=== PATIENT | female | born 1970 | race Caucasian/White ===

== ENCOUNTER 2019-12-04 08:41 | Inpatient (IN) | payer OTHER ==
[2019-12-04] MEDS ORDERED: ONDANSETRON 4 MG/2 ML VIAL IVPUSH ONE ×2 (08:57→12:05)
[2019-12-04] MEDS ORDERED: KETOROLAC TROMETHAMINE 30 MG/1 ML VIAL IVPUSH ONE (08:57)
[2019-12-04] MEDS ORDERED: SODIUM CHLORIDE 1,000 ML IV STA (08:57)
--- NOTE | 2019-12-04 08:57 | PDOC ---
Rapid Medical Evaluation Time Seen by Provider: 12/04/19 08:53 Medical Evaluation: Allergies Allergy/AdvReac Type Severity Reaction Status Date / Time shellfish derived Allergy Verified 12/04/19 08:54 12/04/19 08:54 CC: sudden onset of n/v/d at 2 AM, no hematuria, no fever, no irreg menses, hx kidney stones, diverticulosis ExaM: actively vomiting, appears uncomfortable, vss, tender to llq Plan: labs, urine, toradol, zofran, ivf Discharge Disposition - Diagnosis Nausea & vomiting - Referrals - Patient Instructions - Post Discharge Activity
[2019-12-04 09:02] VITALS: BMI 30.2
[2019-12-04] MEDS ORDERED: KETOROLAC TROMETHAMINE 30 MG/1 ML VIAL ONE (09:17)
--- NOTE | 2019-12-04 09:49 | PDOC ---
History of Present Illness - General Chief Complaint: Pain Stated Complaint: COUGHING/NAUSEA Time Seen by Provider: 12/04/19 08:53 - History of Present Illness Initial Comments: Soni Gerber is a 49 y/o female with PMH significant for diverticulitis and s/p tubal ligation and tummy tuck, and remote hx of kidney stones 20 years ago, presenting today with nausea, vomiting NBNB, and abdominal pain that started at 2am this morning. Denies fever/chills. Denies chest pain/shortness of breath. Pain is diffuse but worse over the left flank and LLQ. No leg swelling. No dysuria. No diarrhea/constipation. No headache/dizziness. Last meal 7pm last night. Past History - Medical History Allergies/Adverse Reactions: Allergies Allergy/AdvReac Type Severity Reaction Status Date / Time shellfish derived Allergy Verified 12/04/19 08:54 COPD: No Other medical history: COLITIS, KIDNEY STONES - Immunization History Immunization Up to Date: Yes - Psycho-Social/Smoking History Smoking History: Never smoked - Substance Abuse Hx (Audit-C & DAST Scrn) How often the patient has a drink containing alcohol: Monthly or less Number of drinks the patient has on a typical day: 1 or 2 How often the patient has six or more drinks on one occasion: Never Score: In Men: 4 or > Positive; In Women: 3 or > Positive: 1 Screen Result (Pos requires Nsg. Audit-10AR): Negative In the last yr the pt used illegal drug/Rx for NonMed reason: No Score: Yes response is considered Positive: 0 Screen Result (Positive result requires Nsg. DAST-10): Negative Review of Systems - Review of Systems Comments:: GENERAL/CONSTITUTIONAL: No fever or chills. No weakness._ HEAD, EYES, EARS, NOSE AND THROAT: No change in vision. No change in hearing. No sore throat._ CARDIOVASCULAR: No chest pain or shortness of breath_ RESPIRATORY: Denies cough, hemoptysis_ GASTROINTESTINAL: Reports abdominal pain. Reports nausea/vomiting. No diarrhea or constipation._ GENITOURINARY: No dysuria, frequency, or change in urination._ MUSCULOSKELETAL: Reports left flank pain. No neck or back pain._ SKIN: No rash_ NEUROLOGIC: No headache, vertigo, loss of consciousness, or change in strength/sensation._ ENDOCRINE: No increased thirst. No abnormal weight change_ HEMATOLOGIC/LYMPHATIC: No anemia, easy bleeding, or history of blood clots._ ALLERGIC/IMMUNOLOGIC: No hives or skin allergy._ *Physical Exam - Vital Signs Last Vital Signs Temp Pulse Resp BP Pulse Ox 98.2 F 86 20 158/101 H 100 12/04/19 08:55 12/04/19 08:55 12/04/19 08:55 12/04/19 08:55 12/04/19 08:55 - Physical Exam GENERAL: Awake, alert, and oriented to person/place/time, in no acute distress_ HEAD: No signs of trauma, normocephalic, atraumatic _ EYES: PERRLA, EOMI, sclera anicteric, conjunctiva clear_ ENT: Hearing grossly normal, nares patent, oropharynx clear without exudates. No uvular deviation. Moist mucosa_ NECK: Normal ROM, supple, no lymphadenopathy, JVD, or masses_ LUNGS: No distress, speaks in full sentences, clear to auscultation bilaterally _ HEART: Regular rate and rhythm, normal S1 and S2, no murmurs appreciated, peripheral pulses normal and equal bilaterally._ ABDOMEN: Soft, diffuse TTP worse in the LLQ, normoactive bowel sounds. No guarding, no rebound. No masses_ BACK: Left flank TTP, no CVA tenderness bilaterally. EXTREMITIES: Normal inspection, Normal range of motion, no edema. No clubbing or cyanosis_ NEUROLOGICAL: Cranial nerves II through XII grossly intact. Normal speech, normal gait, no focal sensorimotor deficits _ SKIN: Warm, Dry, normal turgor, no rashes or lesions noted_ ED Treatment Course - LABORATORY CBC & Chemistry Diagram: 12/04/19 09:20 12/04/19 09:20 - Medications Given in the ED: ED Medications Discontinued Medications Generic Name Dose Route Start Last Admin Trade Name Freq PRN Reason Stop Dose Admin Ketorolac Tromethamine 30 mg 12/04/19 08:57 12/04/19 09:23 Toradol Injection - IVPUSH 12/04/19 08:58 30 mg ONCE ONE Administration Ondansetron HCl 4 mg 12/04/19 08:57 12/04/19 09:29 Zofran Injection IVPUSH 12/04/19 08:58 4 mg ONCE ONE Administration Medical Decision Making - Medical Decision Making Soni Gerber is a 49 y/o female with PMH significant for diverticulitis (dx 2019, most recent flare up 1 month ago), and remote hx of kidney stone 20 years ago, presenting today with abdominal pain, nausea, vomiting. DDX includes diverticulitis vs bowel obstruction vs nephrolithiasis vs other acute abdominal pathology. -cbc, cmp -coags -type and screen -ua, ucx -lipase -mg 12/04/19 14:11 POCUS shows left sided hydronephrosis. Will obtain CT abd/pelv w/o IV contrast to r/o nephrolithiasis vs diverticulitis. Labs reviewed. Laboratory Last Values WBC 19.5 K/mm3 (4.0-10.0) H 12/04/19 09:20 RBC 5.15 M/mm3 (3.60-5.2) 12/04/19 09:20 Hgb 14.7 GM/dL (10.7-15.3) 12/04/19 09:20 Hct 44.0 % (32.4-45.2) 12/04/19 09:20 MCV 85.4 fl (80-96) 12/04/19 09:20 MCH 28.5 pg (25.7-33.7) 12/04/19 09:20 MCHC 33.4 g/dl (32.0-36.0) 12/04/19 09:20 RDW 13.3 % (11.6-15.6) 12/04/19 09:20 Plt Count 387 K/MM3 (134-434) 12/04/19 09:20 MPV 9.3 fl (7.5-11.1) 12/04/19 09:20 Absolute Neuts (auto) 16.8 K/mm3 (1.5-8.0) H 12/04/19 09:20 Neutrophils % 86.0 % (42.8-82.8) H 12/04/19 09:20 Lymphocytes % 11.5 % (8-40) 12/04/19 09:20 Monocytes % 2.0 % (3.8-10.2) L 12/04/19 09:20 Eosinophils % 0.0 % (0-4.5) 12/04/19 09:20 Basophils % 0.5 % (0-2.0) 12/04/19 09:20 Nucleated RBC % 0 % (0-0) 12/04/19 09:20 PT with INR 10.90 SEC (9.7-13.0) 12/04/19 09:30 INR 0.92 (0.83-1.09) 12/04/19 09:30 PTT (Actin FS) 29.1 SECONDS (25.2-36.5) 12/04/19 09:30 Sodium 139 mmol/L (136-145) 12/04/19 09:20 Potassium 4.4 mmol/L (3.5-5.1) 12/04/19 09:20 Chloride 105 mmol/L (98-107) 12/04/19 09:20 Carbon Dioxide 27 mmol/L (21-32) 12/04/19 09:20 Anion Gap 7 MMOL/L (8-16) L 12/04/19 09:20 BUN 15.0 mg/dL (7-18) 12/04/19 09:20 Creatinine 1.0 mg/dL (0.55-1.3) 12/04/19 09:20 Est GFR (CKD-EPI)AfAm 76.07 12/04/19 09:20 Est GFR (CKD-EPI)NonAf 65.64 12/04/19 09:20 Random Glucose 205 mg/dL (74-106) H 12/04/19 09:20 Calcium 9.4 mg/dL (8.5-10.1) 12/04/19 09:20 Magnesium 2.2 mg/dL (1.8-2.4) 12/04/19 09:20 Total Bilirubin 0.4 mg/dL (0.2-1) 12/04/19 09:20 AST 27 U/L (15-37) 12/04/19 09:20 ALT 35 U/L (13-61) 12/04/19 09:20 Alkaline Phosphatase 81 U/L (45-117) 12/04/19 09:20 Total Protein 7.9 g/dl (6.4-8.2) 12/04/19 09:20 Albumin 4.5 g/dl (3.4-5.0) 12/04/19 09:20 Lipase 95 U/L (73-393) 12/04/19 09:20 Serum , Qual Negative 12/04/19 11:16 Urine Color Yellow 12/04/19 11:45 Urine Appearance Clear 12/04/19 11:45 Urine pH >= 9.0 (5.0-8.0) H 12/04/19 11:45 Ur Specific [place] 1.010 (1.010-1.035) 12/04/19 11:45 Urine Protein Negative (NEGATIVE) 12/04/19 11:45 Urine Glucose (UA) Negative (NEGATIVE) 12/04/19 11:45 Urine Ketones Negative (NEGATIVE) 12/04/19 11:45 Urine Blood 3+ (NEGATIVE) H 12/04/19 11:45 Urine Nitrite Negative (NEGATIVE) 12/04/19 11:45 Urine Bilirubin Negative (NEGATIVE) 12/04/19 11:45 Urine Urobilinogen 0.2 mg/dL (0.2-1.0) 12/04/19 11:45 Ur Leukocyte Esterase Trace (NEGATIVE) 12/04/19 11:45 Urine WBC (Auto) 59 /uL (0-25.8) 12/04/19 11:45 Urine RBC (Auto) 287 /uL (0-23.9) 12/04/19 11:45 Urine Casts (Auto) 2 /uL (0-3.1) 12/04/19 11:45 U Epithel Cells (Auto) 16 /uL (0-25.1) 12/04/19 11:45 Urine Bacteria (Auto) 193 /uL (0-1359) 12/04/19 11:45 Blood Type O POSITIVE 12/04/19 11:21 Antibody Screen Negative 12/04/19 11:21 12/04/19 15:03 CT abd/pelv shows no signs of diverticulitis. 10 x 11 mm mid left ureteral calculus with moderate hydronephrosis. No additional evidence of acute pathology within the abdomen or pelvis. Please see above discussion. 12/04/19 15:23 D/w Dr. Weber who will evaluate the patient. Plan to take pt to OR tomorrow for stone removal and uretal stent placement given size of the stone. Will obtain cxr, ekg, covid swab for admission. 12/04/19 16:35 D/w Dr. Yarbrough who accepts this patient for admission. Discharge - Discharge Information Problems reviewed: Yes Clinical Impression/Diagnosis: Nausea & vomiting, Renal colic on left side Condition: Stable - Admission Yes - Follow up/Referral - Patient Discharge Instructions - Post Discharge Activity
[2019-12-04 09:58] LABS: BASO % 0.5 % (0-2.0); HEMOGLOBIN 14.7 GM/dL (10.7-15.3); LYMPH % 11.5 % (8-40); MCH 28.5 pg (25.7-33.7); MCHC 33.4 g/dl (32.0-36.0); MEAN CELL VOLUME 85.4 fl (80-96); MEAN PLT VOLUME 9.3 fl (7.5-11.1); PLATELET COUNT 387 K/MM3 (134-434); RBC 5.15 M/mm3 (3.60-5.2); RDW 13.3 % (11.6-15.6); WHITE BLOOD COUNT 19.5 K/mm3 (4.0-10.0)
[2019-12-04 10:27] LABS: ALBUMIN 4.5 g/dl (3.4-5.0); CALCIUM 9.4 mg/dL (8.5-10.1); MAGNESIUM 2.2 mg/dL (1.8-2.4); POTASSIUM 4.4 mmol/L (3.5-5.1); TOT PROT 7.9 g/dl (6.4-8.2)
[2019-12-04 10:52] LABS: BILIRUBIN,TOTAL 0.4 mg/dL (0.2-1)
[2019-12-04 12:37] LABS: INR 0.92 (0.83-1.09); PROTHROMBIN TIME (PATIENT) 10.9 SEC (9.7-13.0)
[2019-12-04 12:38] LABS: EPI CELLS 16 /uL (0-25.1); HYALINE CASTS 2 /uL (0-3.1); PH,URINE >= 9.0 (5.0-8.0); URINE APPEARANCE CLEAR; URINE BACTERIA 193 /uL (0-1359); URINE BILIRUBIN NEGATIVE (NEGATIVE); URINE COLOR YELLOW; URINE GLUCOSE (UA) NEGATIVE (NEGATIVE); URINE KETONE NEGATIVE (NEGATIVE); URINE LEUK ESTERASE TRACE (NEGATIVE); URINE NITRITE NEGATIVE (NEGATIVE); URINE PROTEIN NEGATIVE (NEGATIVE); URINE RBC 287 /uL (0-23.9); URINE UROBILINOGEN 0.2 mg/dL (0.2-1.0); URINE WBC 59 /uL (0-25.8)
[2019-12-04 12:40] LABS: ACTIVATED PTT 29.1 SECONDS (25.2-36.5)
--- NOTE | 2019-12-04 13:59 | PDOC ---
Documentation entered by Tonya Menjivar SCRIBE, acting as scribe for Mary Luu MD. Mary Luu MD: This documentation has been prepared by the Tiara black Xhesika, SCRIBE, under my direction and personally reviewed by me in its entirety. I confirm that the documentation accurately reflects all work, treatment, procedures, and medical decision making performed by me. Attending Attestation - Resident Resident Name: GuidryTeja - ED Attending Attestation I have performed the following: I have examined & evaluated the patient, The case was reviewed & discussed with the resident, I agree w/resident's findings & plan, Exceptions are as noted - HPI HPI: 12/04/19 09:47 The patient is a 49y/o F with a PMH of kidney stones and diverticulitis, prior tubal ligation and abdominoplasty, who presents to the ED with sudden onset of LLQ abdominal pain since 2AM. Pt reports associated nausea, vomiting and diarrhea. Pt states her last diverticulitis flare up was one month ago. The patient denies chest pain, shortness of breath, headache and dizziness. Denies fever, chills, cough. Denies dysuria, frequency, urgency and hematuria. denies fever. no urinary complaints. no other complaints. has thrown up several times. all nonbloody , non bilious. Allergies: shellfish derived 12/04/19 13:54 - Physicial Exam PE: 12/04/19 13:55 awake alert lungs clear bilat heart rrr no mrg abd soft , llq ttp. no rebound no guarding. ruq ttp. nd ext wwp. no edema. no calf tenderness. skin warm and dry. alert oriented x 3. - Medical Decision Making 12/04/19 13:58 49 yo h/o diverticulitis, renal clic, prior abd surgeries. here with lower abd pain. differential diverticulitis, sbo, performation. plan labs ivf, pain conrol ct a/p 12/04/19 17:[address] with mid ureteral stone, mild / mod hydro stone 10 - 11 m. d/w dr johnston, pt ras require lithotripsy. placed on schedule for day following. Discharge - Discharge Information Problems reviewed: Yes Clinical Impression/Diagnosis: Nausea & vomiting, Renal colic on left side - Follow up/Referral - Patient Discharge Instructions - Post Discharge Activity
[2019-12-04] MEDS ORDERED: METOCLOPRAMIDE HCL INJECTION 10 MG/2 ML VIAL IVPB ONE (14:01)
[2019-12-04] MEDS ORDERED: METOCLOPRAMIDE HCL INJECTION 10 MG/2 ML VIAL ONE (14:07)
--- NOTE | 2019-12-04 15:43 | CON.GU ---
Consult Reason for Consultation:: left renal colic - History of Present Illness Chief Complaint: left obstructing ureteral stone History of Present Illness: Patient is a 49 year old female with history of severe left renal colic associated with nausea and vomiting. Patient denies gross hematuria, dysuri, fever, or chills. The pain has been present for 24 hours. - History Source History Provided By: Patient, Medical Record Limitations to Obtaining History: No Limitations - Smoking History Smoking history: Never smoked Home Medications - Allergies Allergies/Adverse Reactions: Allergies Allergy/AdvReac Type Severity Reaction Status Date / Time shellfish derived Allergy Verified 12/04/19 08:54 Physical Exam- Vital Signs: Vital Signs Temperature 97.7 F 12/04/19 11:44 Pulse Rate 67 12/04/19 11:44 Respiratory Rate 18 12/04/19 11:44 Blood Pressure 158/86 12/04/19 11:44 O2 Sat by Pulse Oximetry (%) 100 12/04/19 11:44 Constitutional: Yes: Well Nourished, Anxious, Moderate Distress Eyes: Yes: WNL, Conjunctiva Clear, EOM Intact HENT: Yes: WNL, Atraumatic, Normocephalic Neck: Yes: WNL, Supple, Trachea Midline Cardiovascular: Yes: WNL, Regular Rate and Rhythm Respiratory: Yes: WNL Gastrointestinal: Yes: Soft, Hypoactive Bowel Sounds Renal/: Yes: CVA Tenderness - Left Kidneys: Yes: Flank Pain Left Pelvis: Yes: WNL, Bladder Non Palpable External Genitalia: Yes: WNL Labs: CBC, BMP 12/04/19 09:20 12/04/19 09:20 Imaging - Results Cat Scan: Report Reviewed Assessment/Plan impression left obstructing 10mm x 11mm mid ureteral stone with hydronephrosis plan discussed all options with patient. Given the size and location surgical intervention will be scheduled for 12/04 25 minutes spent with patient. risks and benefits reviewed patient is pre-op for a left ureterscopic stone basketing and stent placement.
[2019-12-04] MEDS ORDERED: CEFTRIAXONE 1 GM in DEXTROSE 5%-WATER - 100 ML IVPB ONE (16:32)
--- NOTE | 2019-12-04 16:34 | HP ---
CHIEF COMPLAINT: L flank pain PCP: denies HISTORY OF PRESENT ILLNESS: 49 F h/o nephrolithiasis, diverticulitis in the past, otherwise no significant PMHx presents with severe L flank pain radiating to groin. Patient confused symptoms w/ diverticulitis pain she suffered from last year (never operated on was treated w/ abx and bowel rest), but was found to have a L ureteral stone. Pt. endorses mild dysuria symptoms but denies fever/chills/CP/SOB, endorses nausea and 1 episode of NBNB vomiting due to pain. Was tested for COVID 3 weeks ago endorses was negative. Denies travel outside [facility]. Patient scheduled for ESWL tomorrow AM w/ Dr. Steven Durbin. ER course was notable for: (1) L flank pain, neg. B-HCG (2) CT A/P showing L ureteral stone (3) UA showing mild UTI Recent Travel: denies PAST MEDICAL HISTORY: as above PAST SURGICAL HISTORY: denies Social History: denies x3 Allergies shellfish derived Allergy (Verified 12/04/19 08:54) HOME MEDICATIONS: denies PHYSICAL EXAMINATION Vital Signs - 24 hr 12/04/19 12/04/19 08:55 11:44 Temperature 98.2 F 97.7 F Pulse Rate 86 Pulse Rate [ 67 Left Radial] Respiratory 20 18 Rate Blood Pressure 158/101 H Blood Pressure 158/86 [Right Arm] O2 Sat by Pulse 100 100 Oximetry (%) GA comfortable, AAOx3, speaking in full sentences, NAD HEENT NC/AT, EOMI, dry MM, neck supple Chest CTAB, no wheezing or crackles CVS s1, S2+, RRR Abd Soft, some LLQ tenderness, no guarding, BS+, L flank CVA+ Ext No LE edema, no calf tenderness Laboratory Results - last 24 hr 12/04/19 12/04/19 12/04/19 09:20 09:20 09:30 WBC 19.5 H RBC 5.15 Hgb 14.7 Hct 44.0 MCV 85.4 MCH 28.5 MCHC 33.4 RDW 13.3 Plt Count 387 MPV 9.3 Absolute Neuts (auto) 16.8 H Neutrophils % 86.0 H Lymphocytes % 11.5 Monocytes % 2.0 L Eosinophils % 0.0 Basophils % 0.5 Nucleated RBC % 0 PT with INR 10.90 INR 0.92 PTT (Actin FS) 29.1 Sodium 139 Potassium 4.4 Chloride 105 Carbon Dioxide 27 Anion Gap 7 L BUN 15.0 Creatinine 1.0 Est GFR (CKD-EPI)AfAm 76.07 Est GFR (CKD-EPI)NonAf 65.64 Random Glucose 205 H Calcium 9.4 Magnesium 2.2 Total Bilirubin 0.4 AST 27 ALT 35 Alkaline Phosphatase 81 Total Protein 7.9 Albumin 4.5 Lipase 95 Serum , Qual Urine Color Urine Appearance Urine pH Ur Specific [place] Urine Protein Urine Glucose (UA) Urine Ketones Urine Blood Urine Nitrite Urine Bilirubin Urine Urobilinogen Ur Leukocyte Esterase Urine WBC (Auto) Urine RBC (Auto) Urine Casts (Auto) U Epithel Cells (Auto) Urine Bacteria (Auto) Blood Type Antibody Screen 12/04/19 12/04/19 12/04/19 11:16 11:21 11:45 WBC RBC Hgb Hct MCV MCH MCHC RDW Plt Count MPV Absolute Neuts (auto) Neutrophils % Lymphocytes % Monocytes % Eosinophils % Basophils % Nucleated RBC % PT with INR INR PTT (Actin FS) Sodium Potassium Chloride Carbon Dioxide Anion Gap BUN Creatinine Est GFR (CKD-EPI)AfAm Est GFR (CKD-EPI)NonAf Random Glucose Calcium Magnesium Total Bilirubin AST ALT Alkaline Phosphatase Total Protein Albumin Lipase Serum , Qual Negative Urine Color Yellow Urine Appearance Clear Urine pH >= 9.0 H Ur Specific [place] 1.010 Urine Protein Negative Urine Glucose (UA) Negative Urine Ketones Negative Urine Blood 3+ H Urine Nitrite Negative Urine Bilirubin Negative Urine Urobilinogen 0.2 Ur Leukocyte Esterase Trace Urine WBC (Auto) 59 Urine RBC (Auto) 287 Urine Casts (Auto) 2 U Epithel Cells (Auto) 16 Urine Bacteria (Auto) 193 Blood Type O POSITIVE Antibody Screen Negative Current Medications Generic Name Dose Route Start Last Admin Trade Name Freq PRN Reason Stop Dose Admin Ceftriaxone Sodium 1 gm/ 50 mls @ 100 mls/hr 12/05/19 10:00 Dextrose IVPB DAILY [facility] Protocol ASSESSMENT/PLAN: 49 F L ureteral stone UTI h/o diverticulitis Plan: Ceftriaxone to cover for UTI (endorses mild dysuria) and planned i nstrumentation (ESWL for AM) IVF, correct electrolytes PRN Send A1c/lipids/TSH Urology following DVT ppx: Heparin SC Visit type - Emergency Visit Emergency Visit: Yes ED Registration Date: 12/04/19 Care time: The patient presented to the Emergency Department on the above date and was hospitalized for further evaluation of their emergent condition. - New Patient This patient is new to me today: Yes Date on this admission: 12/04/19 - Critical Care Critical Care patient: No
[2019-12-04] MEDS ORDERED: SODIUM CHLORIDE 1,000 ML IV SCH (21:00)
[2019-12-05 07:33] LABS: BASO % 0.3 % (0-2.0); EOS % 0.2 % (0-4.5); HEMATOCRIT 42.4 % (32.4-45.2); HEMOGLOBIN 13.9 GM/dL (10.7-15.3); LYMPH % 30.7 % (8-40); MCHC 32.8 g/dl (32.0-36.0); MEAN CELL VOLUME 85.2 fl (80-96); NEUT % 61.8 % (42.8-82.8); PLATELET COUNT 340 K/MM3 (134-434); RBC 4.98 M/mm3 (3.60-5.2); RDW 13.5 % (11.6-15.6); WHITE BLOOD COUNT 15.6 K/mm3 (4.0-10.0)
[2019-12-05 07:57] LABS: BILIRUBIN,TOTAL 0.5 mg/dL (0.2-1); CALCIUM 9.1 mg/dL (8.5-10.1); CREATININE 0.8 mg/dL (0.55-1.3); POTASSIUM 3.9 mmol/L (3.5-5.1); TOT PROT 7.1 g/dl (6.4-8.2)
[2019-12-05] MEDS ORDERED: CEFTRIAXONE 1 GM in DEXTROSE 5%-WATER - 50 ML IVPB SCH (10:00)
--- NOTE | 2019-12-05 10:13 | EKG ---
Test Reason : Blood Pressure : / mmHG Vent. Rate : 055 BPM Atrial Rate : 055 BPM P-R Int : 144 ms QRS Dur : 086 ms QT Int : 448 ms P-R-T Axes : 018 002 005 degrees QTc Int : 428 ms SINUS BRADYCARDIA MODERATE VOLTAGE CRITERIA FOR LVH, MAY BE NORMAL VARIANT BORDERLINE ECG NO PREVIOUS ECGS AVAILABLE Confirmed by Teja Ball MD ([id number]) on 12/05/2019 10:12:45 AM Referred By: Confirmed By:Teja Ball MD
[2019-12-05] MEDS ORDERED: PROPOFOL 20 ML ONE ×3 (16:43)
[2019-12-05] MEDS ORDERED: MIDAZOLAM HCL 2 MG/2 ML SINGLE DOSE VIAL ONE (16:43)
[2019-12-05] MEDS ORDERED: SUCCINYLCHOLINE CHLORIDE 200 MG/10 ML SYRINGE ONE (16:43)
[2019-12-05] MEDS ORDERED: ONDANSETRON 4 MG/2 ML VIAL IVPUSH PRN ×2 (18:31→20:16)
[2019-12-05] MEDS ORDERED: GENTAMICIN 80MG PREMIX BAG IVPB ONE (19:21)
--- NOTE | 2019-12-05 19:57 | OP ---
Operative Note - Note: Operative Date: 12/05/19 Pre-Operative Diagnosis: left ureteral stone Operation: cystoscopy/left retrograde pyelogram/left ureteroscopic stone manipulation/left ureteral stent placement Findings: 1+ cm mid ureteral stone which is impacted with high grade hydronephrosis Post-Operative Diagnosis: Same as Pre-op Surgeon: Wilman Weber Anesthesia: General Drains & Tubes with Location: 11/28 left ureteral stent
[2019-12-05] MEDS ORDERED: SODIUM CHLORIDE 1,000 ML IV SCH (20:16)
[2019-12-06 09:38] VITALS: BP 130/73; PULSE 50; TEMP 98.5
[2019-12-06] MEDS ORDERED: CEFTRIAXONE 1 GM in DEXTROSE 5%-WATER - 50 ML IVPB SCH (10:00)
--- NOTE | 2019-12-06 10:39 | PN ---
Progress Note (short form) - Note Progress Note: Anesthesia POD#1 S/P Cystoscopy and Stent placement under GA VSS,no pain, no N/V No injury seen Jossy Maddox MD.
[2019-12-06 11:12] LABS: BASO % 0.4 % (0-2.0); HEMATOCRIT 41.8 % (32.4-45.2); HEMOGLOBIN 13.7 GM/dL (10.7-15.3); LYMPH % 24.3 % (8-40); MCH 27.9 pg (25.7-33.7); MCHC 32.9 g/dl (32.0-36.0); MEAN CELL VOLUME 84.9 fl (80-96); NEUT % 70.3 % (42.8-82.8); PLATELET COUNT 351 K/MM3 (134-434); RBC 4.92 M/mm3 (3.60-5.2); RDW 13.6 % (11.6-15.6); WHITE BLOOD COUNT 12.1 K/mm3 (4.0-10.0)
[2019-12-06 11:33] LABS: ALBUMIN 3.8 g/dl (3.4-5.0); BILIRUBIN,TOTAL 0.3 mg/dL (0.2-1); BLOOD UREA NITROGEN 12.5 mg/dL (7-18); CALCIUM 8.8 mg/dL (8.5-10.1); POTASSIUM 4.3 mmol/L (3.5-5.1)
[2019-12-06 11:39] LABS: CREATININE 0.7 mg/dL (0.55-1.3)
[2019-12-06] MEDS ORDERED: ACETAMINOPHEN 325 MG TABLET (FP) PO PRN (11:46)
--- NOTE | 2019-12-06 17:50 | DS ---
Physical Exam: SUBJECTIVE: Patient seen and examined OBJECTIVE: Vital Signs Period Temp Pulse Resp BP Sys/Bhakta Pulse Ox Last 24 Hr 97.6 F-98.5 F 50-60 16-20 130-160/56-85 97-100 PHYSICAL EXAM GENERAL: The patient is awake, alert, and fully oriented, in no acute distress. HEAD: Normal with no signs of trauma. EYES: PERRL, extraocular movements intact, sclera anicteric, conjunctiva clear. ENT: Ears normal, nares patent, oropharynx clear without exudates, moist mucous membranes. NECK: Trachea midline, full range of motion, supple. LUNGS: Breath sounds equal, clear to auscultation bilaterally, no wheezes, no crackles, no accessory muscle use. HEART: Regular rate and rhythm, S1, S2 without murmur, rub or gallop. ABDOMEN: Soft, nontender, nondistended, normoactive bowel sounds, no guarding, no rebound, no hepatosplenomegaly, no masses. EXTREMITIES: 2+ pulses, warm, well-perfused, no edema. NEUROLOGICAL: Cranial nerves II through XII grossly intact. Normal speech, gait not observed. PSYCH: Normal mood, normal affect. SKIN: Warm, dry, normal turgor, no rashes or lesions noted. LABS Laboratory Results - last 24 hr 12/04/19 12/06/19 12/06/19 15:51 10:08 10:08 WBC 12.1 H RBC 4.92 Hgb 13.7 Hct 41.8 MCV 84.9 MCH 27.9 MCHC 32.9 RDW 13.6 Plt Count 351 MPV 9.0 Absolute Neuts (auto) 8.5 H Neutrophils % 70.3 Lymphocytes % 24.3 D Monocytes % 5.0 Eosinophils % 0.0 D Basophils % 0.4 Nucleated RBC % 0 Sodium 138 Potassium 4.3 Chloride 106 Carbon Dioxide 23 Anion Gap 10 BUN 12.5 Creatinine 0.7 Est GFR (CKD-EPI)AfAm 117.09 Est GFR (CKD-EPI)NonAf 101.02 Random Glucose 137 H Calcium 8.8 Total Bilirubin 0.3 AST 19 ALT 30 Alkaline Phosphatase 67 Total Protein 7.0 Albumin 3.8 COVID-19 (MARLEE) Not detected HOSPITAL COURSE: Date of Admission:12/04/19 Date of Discharge: 12/06/19 Patient is a 49 F h/o nephrolithiasis, diverticulitis in the past, otherwise no significant PMHx presents with severe L flank pain radiating to groin. CT scan showed a left ureteral stone. Patient was seen by urology and underwent ESWL/stent placement. Patient was also given antibiotics for UTI. Patient tolerated the procedure well and was discharged with instructions to follow up with urology and to finish a course of Macrobid. Minutes to complete discharge: 36 Discharge Summary Problems reviewed: Yes Reason For Visit: CALCULUS OF KIDNEY Condition: Stable - Instructions Diet, Activity, Other Instructions: Your visit You were admitted to the hospital because of back and belly pain. You were found to have a kidney stone. You were seen by urologist and you underwent a procedure to take out the stone, and a stent was placed in your urinary tract for the smaller stones to pass. Please use a strainer when you urinate, to try to catch the stones, and please bring it when you see Dr. Weber. Please drink plenty of fluids. Medications Please take the following medications as presribed: 1. Macrobid 100mg twice a day for 5 days. 2. You may take Tylenol or ibuprofen as needed for pain Follow up Please follow up with your primary care doctor in 1-2 weeks. Please follow up with the urologist (Dr. Weber) in 1 week. A referral has been provided. Additional info Please call 911 or go to the ED if with any worsening fevers, chills, headache, dizziness, chest pain, shortness of breath, belly pain, diarrhea, urinary symptoms. Referrals: [facility] [place] [place] [Provider Group] Wilman Weber MD [Staff Physician] - Disposition: HOME - Home Medications Comprehensive Discharge Medication List: Ambulatory Orders Nitrofurantoin Monohyd/M-Cryst [Macrobid -] 100 mg PO BID #10 capsule 12/06/19 This patient is new to me today: Yes Date on this admission: 12/06/19 Emergency Visit: Yes ED Registration Date: 12/04/19 Care time: The patient presented to the Emergency Department on the above date and was hospitalized for further evaluation of their emergent condition. Critical Care patient: No - Discharge Referral Referred to [facility] No ATTENDING PHYSICIAN STATEMENT I saw and evaluated the patient. I reviewed the resident's note and discussed the case with the resident. I agree with the resident's findings and plan as documented. SUBJECTIVE: OBJECTIVE: ASSESSMENT AND PLAN:
--- NOTE | 2019-12-06 20:53 | OP ---
DATE OF OPERATION: 12/05/2019 PREOPERATIVE DIAGNOSIS: Left ureteral stone. POSTOPERATIVE DIAGNOSIS: Impacted 1+ cm mid ureteral stone. PROCEDURE: Cystoscopy, left retrograde pyelogram, left ureteroscopic stone manipulation, left ureteral stent placement. ATTENDING: Nataliia Weber MD. ANESTHESIA: General. DESCRIPTION OF PROCEDURE: The patient was brought in the operating room, placed in a supine position on the operating room table. The patient was given anesthesia and preoperative antibiotics. At this point the patient was placed in the dorsal lithotomy position and prepped and draped in the usual sterile manner. Cystoscopy was performed. No evidence of stone was noted. No signs of neoplasm were noted as well. The left ureteral orifice appeared normal. The retrograde pyelogram showed a 1+ cm filling defect in the mid ureter. High-grade hydroureteronephrosis was noted. At this point, a wire was passed with difficulty. Once the wire was passed, ureteroscopy was performed. The stone was seen to be impacted. Manipulation was utilized, and the stone migrated into the lower pole calyx. There appeared to be hematuria. Due to the poor visualization, it was decided to abandon any further uteroscopic approach due to the risk of injury. The ureteroscope was removed, and the 6 x 24 left ureteral stent was placed over the wire utilizing the Seldinger technique. No complications were noted. Patient tolerated the procedure very well. NATALIIA ANGEL M.D. /[id number]
--- NOTE | 2019-12-08 09:36 | PN ---
Teaching Attending Note Name of Resident: Kathryn Dickens ATTENDING PHYSICIAN STATEMENT I saw and evaluated the patient. I reviewed the resident's note and discussed the case with the resident. I agree with the resident's findings and plan as documented. SUBJECTIVE: Patient seen and examined at bedside, s/p ESWL w/ stent placement, tolerated procedure well, feeling better, stable for DC home. OBJECTIVE: GA comfortable, AAOx3, speaking in full sentences, NAD HEENT NC/AT, EOMI, dry MM, neck supple Chest CTAB, no wheezing or crackles CVS s1, S2+, RRR Abd Soft, NT, ND, no guarding, BS+, neg. for CVA tenderness Ext No LE edema, no calf tenderness Vital Signs (72 hours) 12/05/19 12/05/19 12/05/19 10:56 16:00 20:09 Temperature 98.9 F 98.0 F Pulse Rate 59 L 54 L Respiratory 18 18 18 Rate Blood Pressure 171/93 H 154/81 O2 Sat by Pulse 99 97 Oximetry (%) 12/05/19 12/05/19 12/05/19 20:15 20:30 20:45 Temperature Pulse Rate 52 L 58 L 50 L Respiratory 16 16 17 Rate Blood Pressure 145/85 150/80 160/82 O2 Sat by Pulse 98 98 97 Oximetry (%) 12/05/19 12/05/19 12/05/19 21:00 21:15 21:30 Temperature 98.3 F 97.6 F Pulse Rate 52 L 54 L 60 Respiratory 16 18 18 Rate Blood Pressure 158/56 L 148/80 147/74 O2 Sat by Pulse 100 98 100 Oximetry (%) 12/05/19 12/06/19 12/06/19 22:00 01:32 05:40 Temperature 97.6 F 97.9 F 97.8 F Pulse Rate 60 52 L 51 L Respiratory 20 18 18 Rate Blood Pressure 147/74 134/80 135/70 O2 Sat by Pulse Oximetry (%) 12/06/19 12/06/19 09:37 10:48 Temperature 98.5 F Pulse Rate 50 L Respiratory 18 18 Rate Blood Pressure 130/73 O2 Sat by Pulse 100 Oximetry (%) Microbiology 12/04/19 11:45 Urine - Urine Clean Catch Urine Culture - Final NO GROWTH OBTAINED Laboratory Tests 12/04/19 12/04/19 12/04/19 09:20 09:20 09:30 WBC 19.5 H RBC 5.15 Hgb 14.7 Hct 44.0 MCV 85.4 MCH 28.5 MCHC 33.4 RDW 13.3 Plt Count 387 MPV 9.3 Absolute Neuts (auto) 16.8 H Neutrophils % 86.0 H Lymphocytes % 11.5 Monocytes % 2.0 L Eosinophils % 0.0 Basophils % 0.5 Nucleated RBC % 0 PT with INR 10.90 INR 0.92 PTT (Actin FS) 29.1 Sodium 139 Potassium 4.4 Chloride 105 Carbon Dioxide 27 Anion Gap 7 L BUN 15.0 Creatinine 1.0 Est GFR (CKD-EPI)AfAm 76.07 Est GFR (CKD-EPI)NonAf 65.64 Random Glucose 205 H Hemoglobin A1c % Calcium 9.4 Magnesium 2.2 Total Bilirubin 0.4 AST 27 ALT 35 Alkaline Phosphatase 81 Total Protein 7.9 Albumin 4.5 Triglycerides Cholesterol Total LDL Cholesterol HDL Cholesterol Lipase 95 TSH Serum , Qual Urine Color Urine Appearance Urine pH Ur Specific [place] Urine Protein Urine Glucose (UA) Urine Ketones Urine Blood Urine Nitrite Urine Bilirubin Urine Urobilinogen Ur Leukocyte Esterase Urine WBC (Auto) Urine RBC (Auto) Urine Casts (Auto) U Epithel Cells (Auto) Urine Bacteria (Auto) COVID-19 (MARLEE) Blood Type Antibody Screen 12/04/19 12/04/19 12/04/19 11:16 11:21 11:45 WBC RBC Hgb Hct MCV MCH MCHC RDW Plt Count MPV Absolute Neuts (auto) Neutrophils % Lymphocytes % Monocytes % Eosinophils % Basophils % Nucleated RBC % PT with INR INR PTT (Actin FS) Sodium Potassium Chloride Carbon Dioxide Anion Gap BUN Creatinine Est GFR (CKD-EPI)AfAm Est GFR (CKD-EPI)NonAf Random Glucose Hemoglobin A1c % Calcium Magnesium Total Bilirubin AST ALT Alkaline Phosphatase Total Protein Albumin Triglycerides Cholesterol Total LDL Cholesterol HDL Cholesterol Lipase TSH Serum , Qual Negative Urine Color Yellow Urine Appearance Clear Urine pH >= 9.0 H Ur Specific [place] 1.010 Urine Protein Negative Urine Glucose (UA) Negative Urine Ketones Negative Urine Blood 3+ H Urine Nitrite Negative Urine Bilirubin Negative Urine Urobilinogen 0.2 Ur Leukocyte Esterase Trace Urine WBC (Auto) 59 Urine RBC (Auto) 287 Urine Casts (Auto) 2 U Epithel Cells (Auto) 16 Urine Bacteria (Auto) 193 COVID-19 (MARLEE) Blood Type O POSITIVE Antibody Screen Negative 12/04/19 12/05/19 12/05/19 15:51 06:24 06:24 WBC 15.6 H RBC 4.98 Hgb 13.9 Hct 42.4 MCV 85.2 MCH 28.0 MCHC 32.8 RDW 13.5 Plt Count 340 MPV 9.0 Absolute Neuts (auto) 9.7 H Neutrophils % 61.8 D Lymphocytes % 30.7 D Monocytes % 7.0 D Eosinophils % 0.2 D Basophils % 0.3 Nucleated RBC % 0 PT with INR INR PTT (Actin FS) Sodium 140 Potassium 3.9 Chloride 107 Carbon Dioxide 24 Anion Gap 9 BUN 13.0 Creatinine 0.8 Est GFR (CKD-EPI)AfAm 99.63 Est GFR (CKD-EPI)NonAf 85.96 Random Glucose 76 Hemoglobin A1c % Calcium 9.1 Magnesium Total Bilirubin 0.5 AST 18 ALT 29 Alkaline Phosphatase 69 Total Protein 7.1 Albumin 4.0 Triglycerides 82 Cholesterol 171 Total LDL Cholesterol 100 HDL Cholesterol 52 Lipase TSH 0.39 Serum , Qual Urine Color Urine Appearance Urine pH Ur Specific [place] Urine Protein Urine Glucose (UA) Urine Ketones Urine Blood Urine Nitrite Urine Bilirubin Urine Urobilinogen Ur Leukocyte Esterase Urine WBC (Auto) Urine RBC (Auto) Urine Casts (Auto) U Epithel Cells (Auto) Urine Bacteria (Auto) COVID-19 (MARLEE) Not detected Blood Type Antibody Screen 12/05/19 12/06/19 12/06/19 06:24 10:08 10:08 WBC 12.1 H RBC 4.92 Hgb 13.7 Hct 41.8 MCV 84.9 MCH 27.9 MCHC 32.9 RDW 13.6 Plt Count 351 MPV 9.0 Absolute Neuts (auto) 8.5 H Neutrophils % 70.3 Lymphocytes % 24.3 D Monocytes % 5.0 Eosinophils % 0.0 D Basophils % 0.4 Nucleated RBC % 0 PT with INR INR PTT (Actin FS) Sodium 138 Potassium 4.3 Chloride 106 Carbon Dioxide 23 Anion Gap 10 BUN 12.5 Creatinine 0.7 Est GFR (CKD-EPI)AfAm 117.09 Est GFR (CKD-EPI)NonAf 101.02 Random Glucose 137 H Hemoglobin A1c % 5.5 Calcium 8.8 Magnesium Total Bilirubin 0.3 AST 19 ALT 30 Alkaline Phosphatase 67 Total Protein 7.0 Albumin 3.8 Triglycerides Cholesterol Total LDL Cholesterol HDL Cholesterol Lipase TSH Serum , Qual Urine Color Urine Appearance Urine pH Ur Specific [place] Urine Protein Urine Glucose (UA) Urine Ketones Urine Blood Urine Nitrite Urine Bilirubin Urine Urobilinogen Ur Leukocyte Esterase Urine WBC (Auto) Urine RBC (Auto) Urine Casts (Auto) U Epithel Cells (Auto) Urine Bacteria (Auto) COVID-19 (MARLEE) Blood Type Antibody Screen Home Medications Medication Instructions Recorded Nitrofurantoin Monohyd/M-Cryst 100 mg PO BID #10 capsule 12/06/19 [Macrobid -] ASSESSMENT AND PLAN: 49 F L ureteral stone s/p ESWL/stent placement UTI h/o diverticulitis Plan: finish abx course with 5 days of Macrobid 100mg BID IVF, correct electrolytes PRN Urology follow up in clinic w/ Dr. Weber Counseled patient on adequate PO hydration, straining, return parameters if pain becomes severe Stable for DC home
== END 2019-12-06 15:29 | disposition home or self-care (01) | DRG 661 ==
LOC: JER 08:41 → JERBED 15:27 → J6WEST-2 12-05 09:03
PROC: 0TC78ZZ Extirpation of Matter from Left Ureter, Via Natural or Artificial Opening Endoscopic (ICD-10-PCS; principal; 2019-12-05 17:30)
PROC: 0T778DZ Dilation of Left Ureter with Intraluminal Device, Via Natural or Artificial Opening Endoscopic (ICD-10-PCS; 2019-12-05 17:30)
PROC: BT1FZZZ Fluoroscopy of Left Kidney, Ureter and Bladder (ICD-10-PCS; 2019-12-05 17:30)
DX: N13.6 Pyonephrosis (principal)
CPT/HCPCS: 36415; 71045-TC-FY; 74176-TC; 76000-TC-FY; 76775-TC; 76856-TC; 80053; 80061; 81003; 83036; 83690; 83721; 83735; 84443; 84703; 85025; 85610; 85730; 86850; 86900; 86901; 87086; 93005; 93010; 94760; 99285-25; U0003

== ENCOUNTER 2020-01-01 15:39 | Day surgery (SDC) | payer OTHER ==
[2020-01-01 16:01] VITALS: BMI 29.3
[2020-01-01] MEDS ORDERED: PROMETHAZINE HCL 25 MG/1 ML VIAL IVPUSH PRN (17:17)
[2020-01-01] MEDS ORDERED: oxyCODONE HCL 5 MG TABLET PO PRN (17:17)
[2020-01-01] MEDS ORDERED: MIDAZOLAM HCL 2 MG/2 ML SINGLE DOSE VIAL ONE (17:23)
[2020-01-01] MEDS ORDERED: PROPOFOL 20 ML ONE (17:23)
[2020-01-01] MEDS ORDERED: LIDOCAINE HCL/PF 2% SDV 5ML VIAL ONE (17:26)
[2020-01-01] MEDS ORDERED: LACTATED RINGERS SOLUTION 1,000 ML IV SCH (17:30)
[2020-01-01] MEDS ORDERED: KETOROLAC TROMETHAMINE 30 MG/1 ML VIAL ONE (17:33)
--- NOTE | 2020-01-01 17:58 | OP ---
Operative Note - Note: Operative Date: 01/01/20 Pre-Operative Diagnosis: Left ureter stone Operation: ESWL of the stone Findings: 10 mm mid ureter stone Left Post-Operative Diagnosis: Same as Pre-op Surgeon: Wilman Weber Anesthesia: Regional Estimated Blood Loss (mls): 0 Drains & Tubes with Location: Left JJ Stent Operative Report Dictated: Yes
[2020-01-01 19:25] VITALS: BP 122/68; PULSE 51; TEMP 97
--- NOTE | 2020-01-02 18:57 | OP ---
DATE OF OPERATION: 01/01/2020 PREOPERATIVE DIAGNOSIS: Left ureteral stone. POSTOPERATIVE DIAGNOSIS: Left ureteral stone. PROCEDURE: Left extracorporeal shockwave lithotripsy. ATTENDING: Naatliia Weber M.D. ANESTHESIA: Fractional. DESCRIPTION OF PROCEDURE: Patient was brought in the operating room, placed in a supine position on the operating room table. Ultrasonography and fluoroscopy were performed. A 10+ cm mid ureteral stone on the left side was noted alongside the left ureteral stent. Anesthesia and preoperative antibiotics were then administered. The patient then underwent extracorporeal shockwave lithotripsy, 3000 impulses at 20 joules of power were administered to the stone. Excellent fragmentation of the stone was noted under real-time ultrasonography and fluoroscopy. No complications were noted. NATALIIA ANGEL M.D. [id number]
== END 2020-01-01 19:20 | disposition home or self-care (01) ==
LOC: JASU-SURG 15:39
PROVIDERS: ATTEND Urology
PROC: 0TF7XZZ Fragmentation in Left Ureter, External Approach (ICD-10-PCS; principal; 2020-01-01 17:30)
DX: N20.1 Calculus of ureter (principal)

== ENCOUNTER 2025-02-19 06:28 | Day surgery (SDC) | payer OTHER ==
[2025-02-16 16:54] VITALS: BMI 28.7
[2025-02-19] MEDS ORDERED: MIDAZOLAM HCL 2 MG/2 ML SINGLE DOSE VIAL ONE ×2 (16:46→16:58)
[2025-02-19 18:40] VITALS: RESP 20; TEMP 97.3
[2025-02-19 18:44] VITALS: BP 117/76; PULSE 59
== END 2025-02-19 18:46 | disposition home or self-care (01) ==
LOC: JASU-SURG 06:28
PROVIDERS: ATTEND Urology
PROC: 0TF3XZZ Fragmentation in Right Kidney Pelvis, External Approach (ICD-10-PCS; principal; 2025-02-19 16:30)
DX: N20.0 Calculus of kidney (principal)